=== PATIENT | female | born 1960 | race Caucasian/White ===

== ENCOUNTER 2018-02-01 06:06 | Day surgery (SDC) | payer OTHER ==
[2018-02-01] MEDS ORDERED: PROPOFOL 200 MG INJ (07:00)
[2018-02-01] MEDS ORDERED: PROPOFOL 80 ML (07:34)
[2018-02-01] MEDS ORDERED: LIDOCAINE 2% (SDV) 5 ML INJ (07:34)
== END 2018-02-01 11:27 | disposition home or self-care (01) ==
LOC: GIL 06:06
DX: Z12.11 Encounter for screening for malignant neoplasm of colon (principal); K21.0 Gastro-esophageal reflux disease with esophagitis; K29.70 Gastritis, unspecified, without bleeding; K57.90 Diverticulosis of intestine, part unspecified, without perforation or abscess without bleeding; K64.4 Residual hemorrhoidal skin tags; K64.8 Other hemorrhoids
CPT/HCPCS: 43239; 88305; 88312